=== PATIENT | male | born 1955 | race Caucasian/White ===

== ENCOUNTER 2024-02-21 13:03 | Observation (INO) | payer MEDICARE, BC, SELFPAY ==
[2024-02-21] VITALS (31 sets, daily range): BP systolic 119–148; BP diastolic 70–85; PULSE 56–88; RESP 16–18; TEMP 36–36.5; O2SAT 94–99; BMI 36.3; BMI 37.4
--- NOTE | 2024-02-21 13:23 | ED_ITS ---
HPI - General Adult General Chief complaint: Neuro Symptoms/Altered Deficit Stated complaint: Headaches, inappropriate words Time Seen by Provider: 02/21/24 13:07 History of Present Illness HPI narrative: Starting at 5: 30 pm last evening, patient having difficulty processing language and numbness to right side of his cheek. Difficulty finding words. 68-year-old man presenting to the emergency department with difficulty speaking and headache. Beginning at around 5:30 p.m. had an episode where he just seemed confused about what peas are. Apparently was a little argumentative with his spouse who accompanies him here today. Had been experiencing some frontal headache as well preceding all of this over the course the day. Did irritate his back somewhat a couple of days ago. notes how he is also under a lot of stress to get a fish garcia ready. I asked him how he is feeling it he just says ?I do not know?. Just does not seem right though. Was taking acetaminophen for headache yesterday. Has not had any cough or cold symptoms. No fever. No chest pain or shortness of breath. No history of arrhythmia. Looks like carries a diagnosis of diabetes. Leaving anabaptism this morning he wanted to turn on the wipers and kept talking about the bearings. Still seems puzzled by that. Has not had any focal weakness. Also apparently just revealed to spouse that the right side of his face was numb yesterday evening. Does not sound as though is typically prone to headache. No visual changes. Related Data Home Medications Medication Instructions Recorded Confirmed atorvastatin 40 mg tablet 40 mg PO QPM 02/21/24 02/21/24 glipizide 5 mg tablet, extended 5 mg PO DAILY 02/21/24 02/21/24 release 24 hr metformin 500 mg tablet,extended 1,000 mg PO BID 02/21/24 02/21/24 release 24 hr omeprazole 20 mg capsule,delayed 20 mg PO DAILY 02/21/24 02/21/24 release pioglitazone 30 mg tablet 30 mg PO DAILY 02/21/24 02/21/24 Allergies Allergy/AdvReac Type Severity Reaction Status Date / Time fentanyl Allergy Intermediate Hypotension Verified 02/21/24 14:29 midazolam [From Versed] Allergy Intermediate Hypotension Verified 02/21/24 14:32 hydrocodone [From Vicodin] Allergy Unknown Verified 02/21/24 14:26 lisinopril Allergy Unknown Verified 02/21/24 14:32 Penicillins Allergy Unknown Verified 02/21/24 14:29 Review of Systems Status of ROS: Reports: 6 or more systems reviewed and unremarkable except as noted in History and below Exam Narrative: Exam Narrative: Pleasant. NAD other than seeming generally concerned. Brow furrowed a little bit. Is articulating himself smoothly. Does struggle with some recall. Just can not for example remember who is current president of the [place] normal sensation at this point. Normal strength. Cranial nerves 2-12 look to be intact at this time. He is a little confused with [id number] but once is doing it it is accurate. Estimate on NIH stroke scale. Heart in regular rate and rhythm. Lungs are clear. Abdomen is overweight soft nontender. Extremities with maybe some trace pretibial edema are otherwise well perfused. Little sore in the low pericervical spinal musculature in the trapezial musculature medially. Const: Vital Signs, click to edit/add: Vital Signs - 24 hr 02/21/24 13:11 02/21/24 14:01 02/21/24 14:12 Temperature 96.8 F L Pulse Rate 60 Pulse Rate [Pulse Oximeter] 64 Respiratory Rate 18 Blood Pressure 148/81 H Blood Pressure [Ri ght Upper Arm] 134/73 Pulse Oximetry 98 97 96 Oxygen Delivery Me thod Room Air 02/21/24 14:13 02/21/24 14:15 02/21/24 14:22 Temperature Pulse Rate 59 L 61 61 Pulse Rate [Pulse Oximeter] Respiratory Rate Blood Pressure 139/76 Blood Pressure [Ri ght Upper Arm] Pulse Oximetry 99 99 96 Oxygen Delivery Me thod 02/21/24 14:22 02/21/24 14:30 02/21/24 14:42 Temperature Pulse Rate 61 59 L 57 L Pulse Rate [Pulse Oximeter] Respiratory Rate Blood Pressure 139/76 141/76 H Blood Pressure [Ri ght Upper Arm] Pulse Oximetry 96 94 94 Oxygen Delivery Me thod 02/21/24 14:51 02/21/24 14:52 02/21/24 15:00 Temperature Pulse Rate 56 L 62 56 L Pulse Rate [Pulse Oximeter] Respiratory Rate Blood Pressure 138/85 Blood Pressure [Ri ght Upper Arm] Pulse Oximetry 98 99 98 Oxygen Delivery Me thod 02/21/24 15:02 02/21/24 15:15 02/21/24 15:22 Temperature Pulse Rate 57 L 58 L 58 L Pulse Rate [Pulse Oximeter] Respiratory Rate Blood Pressure 142/76 H 132/72 Blood Pressure [Ri ght Upper Arm] Pulse Oximetry 98 95 96 Oxygen Delivery Me thod 02/21/24 15:30 02/21/24 15:42 02/21/24 15:45 Temperature Pulse Rate 58 L 60 61 Pulse Rate [Pulse Oximeter] Respiratory Rate Blood Pressure 139/79 Blood Pressure [Ri ght Upper Arm] Pulse Oximetry 94 98 99 Oxygen Delivery Me thod 02/21/24 16:00 02/21/24 16:15 Temperature Pulse Rate 60 58 L Pulse Rate [Pulse Oximeter] Respiratory Rate Blood Pressure Blood Pressure [Ri ght Upper Arm] Pulse Oximetry 97 95 Oxygen Delivery Me thod Documenting provider has reviewed patient's vital signs: yes Course Vital Signs Vital signs: Initial Vital Signs Temperature 96.8 F L 02/21/24 13:11 Temperature Source Temporal Artery Scan 02/21/24 13:11 Pulse Rate 64 02/21/24 13:11 Respiratory Rate 18 02/21/24 13:11 Blood Pressure 134/73 02/21/24 13:11 Blood Pressure Mean 93 02/21/24 13:11 Blood Pressure Position Sitting 02/21/24 13:11 Pulse Oximetry 98 02/21/24 13:11 Oxygen Delivery Method Room Air 02/21/24 13:11 Vital Signs Temperature 96.8 F L 02/21/24 13:11 Pulse Rate 64 02/21/24 13:11 Respiratory Rate 18 02/21/24 13:11 Blood Pressure 134/73 02/21/24 13:11 Pulse Oximetry 98 02/21/24 13:11 Oxygen Delivery Method Room Air 02/21/24 13:11 Temperature 96.8 F L 02/21/24 13:11 Pulse Rate 58 L 02/21/24 16:15 Respiratory Rate 18 02/21/24 13:11 Blood Pressure 139/79 02/21/24 15:42 Pulse Oximetry 95 02/21/24 16:15 Oxygen Delivery Method Room Air 02/21/24 13:11 Medications Administered Medications: Discontinued Medications Generic Name Dose Route Start Last Admin Trade Name Freq PRN Reason Stop Dose Admin Diphenhydramine HCl 12.5 mg 02/21/24 13:37 02/21/24 14:13 Diphenhydramine 50 Mg/Ml Inj IVP 02/21/24 13:38 12.5 mg ONCE ONE Administration Sodium Chloride 1,000 mls @ 1,000 mls/hr 02/21/24 13:36 02/21/24 15:29 0.9 % Sodium Chloride 1000 Ml IV 02/21/24 14:35 Infused .Q1H ONE Infusion Ketorolac Tromethamine 15 mg 02/21/24 15:11 02/21/24 15:35 Ketorolac 15 Mg/Ml Inj IVP 02/21/24 15:12 15 mg ONCE ONE Administration Morphine Sulfate 2 mg 02/21/24 13:37 02/21/24 14:13 Morphine 2 Mg/Ml Inj IVP 02/21/24 13:38 2 mg ONCE ONE Administration Medical Decision Making MDM Narrative Medical decision making narrative: Does appear to have some cognitive/expressive deficits. MRI is not available. Have activated non-Urgent stroke protocol here as I think this is 1st in our differential. Symptoms consistent with ischemic however headache might represent a bleed. May simply be a secondary tension headache. Does not appear to have infectious etiology nor hypertensive enough to cause encephalopathy. Risk for thromboembolic/ischemic stroke considering ChadVasc scoring with diagnosis of diabetes EKG reviewed by me is in a normal sinus rhythm without ischemic changes. Would like something for headache. IV fluids should help. Will give low-dose diphenhydramine and morphine as pending head CT. Discussed this case with Stroke Neuro. Proceeding with imaging per protocol. In Head CT reviewed by me looks to be absent any acute abnormality. Have requested ketorolac now too on reassessment as he would like more medication for pain if possible; admittedly pain is improved. Head CT reviewed by Radiology with read as below Study:?CT Head WITHOUT-02/21/2024 2:25:11 PM Ordering Physician:BARBARA Final Report: Indication : Expressive aphasia. Confusion. Technique : CT of the brain without intravenous contrast. Comparison: None relevant available at the time of interpretation. Findings: No acute blurring of the whiting-white differentiation. There is no intracranial hemorrhage. The ventricles are proportionate to the cerebral sulci. The 4th ventricle is midline. Basal cisterns appear patent. No abnormal extra-axial fluid collection identified. Mild parenchymal volume loss. There is moderate patchy periventricular hypodensity, favored to represent chronic ischemic microvascular disease. Small chronic lacunar infarct in the left ied radiata region. There is no intracranial mass, mass effect or midline shift identified. No depressed calvarial fracture. Impression: 1. No acute intracranial process. 2. Small chronic lacunar infarct left eid radiata. 3. Oxev-sx-fykgerwd chronic ischemic microvascular disease. Discussed again with Stroke Neuro. preliminary read available with no marked vascular disease and no evidence of stroke at this time other than is small chronic lacunar infarct noted as above. Recommendations are for admission, low-dose aspirin, permissive hypertension and follow up MRI Still with complaint of headache following reassessment after dosing with ketorolac as well. Is accepting admission partly on 's prompting. Will also give low-dose ketamine infusion to help with this headache. Discuss this case with hospitalist who is accepting Lab Data Lab results reviewed: Yes I reviewed the patient's lab results Labs: Lab Results 02/21/24 02/21/24 Range/Units 13:35 14:44 WBC 5.50 (4.50-11.00) K/uL RBC 4.45 (4.30-5.90) m/uL Hgb 13.7 (13.5-17.5) gm/dL Hct 42.0 (37.0-53.0) % MCV 94 (80-100) fL MCH 31 (26-34) pg MCHC 33 (32-36) gm/dL RDW Coeff of [place] 13.9 (11.5-15.5) % Plt Count 190 (140-440) K/uL Neut % (Auto) 40.9 L (42.0-72.0) % Lymph % (Auto) 44.7 H (20-44) % [place] % (Auto) 10.2 (0.0-11.0) % Eos % (Auto) 3.6 (0.0-7.0) % Baso % (Auto) 0.4 (0.0-3.0) % Neut # (Auto) 2.20 (1.7-7.0) K/uL Lymph # (Auto) 2.50 (0.90-2.90) K/uL [place] # (Auto) 0.60 (0.00-0.90) K/UL Eos # (Auto) 0.20 (0.00-0.50) K/uL Baso # (Auto) 0.02 (0.00-0.30) K/uL Abs Immat Gran (auto) 0.01 (0.00-0.30) K/uL Imm/Tot Granulo (auto) 0.2 % INR 0.91 (0.91-1.10) APTT 27 (23-33) Seconds Sodium 139 (135-149) mmol/L Potassium 4.1 (3.6-5.1) mmol/L Chloride 106 (96-114) mmol/L Carbon Dioxide 23 (20-32) mmol/L Anion Gap 10 (7-15) mEq/L BUN 18 (7-30) mg/dL Creatinine 1.1 (0.5-1.5) mg/dL Estimated Creat Clear 58.00 Estimated GFR 73 ml/min Glucose 98 (60-115) mg/dL Calcium 9.4 (8.4-10.6) mg/dL Troponin I < 0.01 L (0.01-0.04) ng/mL Urine Opiates Screen POSITIVE A (Negative) Ur Oxycodone Screen Negative (Negative) Urine Methadone Screen Negative (Negative) Ur Barbiturates Screen Negative (Negative) U Tricyclic Antidepress Negative (Negative) Ur Phencyclidine Scrn Negative (Negative) Ur Amphetamines Screen Negative (Negative) U Methamphetamines Scrn Negative (Negative) U Benzodiazepines Scrn Negative (Negative) Urine Cocaine Screen Negative (Negative) U Marijuana (THC) Screen Negative (Negative) Ur Drug Screen Comment See Note ECG Data Attestation: I personally reviewed and interpreted this ECG as follows: (Normal sinus rhythm rate of 65 without acute ischemic changes) Discharge Plan Discharge Clinical Impression: Expressive aphasia, Altered mental status Patient Disposition: Admitted As Observation Condition: Stable
--- NOTE | 2024-02-21 13:35 | CT_ITS ---
Patient: GEOFF MAYER Facility:?[facility] Patient ID:?[id number] Site Patient ID:?[id number]. Site :?1955 Study:?CT-Neck Angio W/ 95CC ISOVUE 370-02/21/2024 2:23:26 PM Ordering Physician:BARBARA Final Report: INDICATION: Acute stroke, expressive aphasia, confusion. TECHNIQUE: CTA neck with contrast bolus tracking, 3D angiographic rendering using maximum intensity projection (MIP) and images permanently archived. FINDINGS: There is minor carotid atherosclerosis. There is no significant carotid artery stenosis or dissection. There is no significant vertebral artery stenosis or dissection. The soft tissues of the neck are within normal limits. Degenerative changes are noted in the cervical spine. IMPRESSION: No significant carotid or vertebral artery stenosis or dissection. Please note that all CT scans at this facility use dose modulation, iterative reconstruction, and/or weight-based dosing when appropriate to reduce radiation dose to as low as reasonably achievable. Dictated by Chang Bello MD @ 02/21/2024 4:04:45 PM Signed by:?Chang Bello MD @02/21/2024 4:04:45 PM (Electronic Signature)
--- NOTE | 2024-02-21 13:35 | CT_ITS ---
Patient: GEOFF MAYER Facility:?[facility] Patient ID:?[id number] Site Patient ID:?[id number]. Site :?1955 Study:?CT-Head WITHOUT-02/21/2024 2:25:11 PM Ordering Physician:BARBARA Final Report: Indication : Expressive aphasia. Confusion. Technique : CT of the brain without intravenous contrast. Comparison: None relevant available at the time of interpretation. Findings: No acute blurring of the whiting-white differentiation. There is no intracranial hemorrhage. The ventricles are proportionate to the cerebral sulci. The 4th ventricle is midline. Basal cisterns appear patent. No abnormal extra-axial fluid collection identified. Mild parenchymal volume loss. There is moderate patchy periventricular hypodensity, favored to represent chronic ischemic microvascular disease. Small chronic lacunar infarct in the left eid radiata region. There is no intracranial mass, mass effect or midline shift identified. No depressed calvarial fracture. Impression: 1. No acute intracranial process. 2. Small chronic lacunar infarct left eid radiata. 3. Jmdt-ng-iypedgdv chronic ischemic microvascular disease. The above findings were communicated over the telephone with Dr. Hu By Dr. Montes at 1456 hours on 02/21/2024. Please note that all CT scans at this facility use dose modulation, iterative reconstruction, and/or weight-based dosing when appropriate to reduce radiation dose to as low as reasonably achievable. Dictated by Presley Montes MD @ 02/21/2024 3:07:23 PM Signed by:?Presley Montes MD @02/21/2024 3:07:23 PM (Electronic Signature)
--- NOTE | 2024-02-21 13:35 | CT_ITS ---
Patient: GEOFF MAYER Facility:?[facility] Patient ID:?[id number] Site Patient ID:?[id number]. Site :?1955 Study:?CT-Head Angio W/ 95CC ISOVUE 370 NONACCUTE-02/21/2024 2:24:33 PM Ordering Physician:BARBARA Final Report: INDICATION: Acute stroke, expressive aphasia, confusion. TECHNIQUE: CTA head with contrast bolus tracking, 3D angiographic rendering using maximum intensity projection (MIP) and images permanently archived. FINDINGS: There is scattered intracranial atherosclerotic disease. There is normal opacification of the intracranial vasculature. There is no large vessel occlusion. No aneurysm is identified. IMPRESSION: No large vessel occlusion. Please note that all CT scans at this facility use dose modulation, iterative reconstruction, and/or weight-based dosing when appropriate to reduce radiation dose to as low as reasonably achievable. Dictated by Chang Bello MD @ 02/21/2024 4:03:29 PM Signed by:?Chang Bello MD @02/21/2024 4:03:29 PM (Electronic Signature)
[2024-02-21 13:45] LABS: Basophils Absolute Auto 0.02 K/uL (0.00-0.30); Basophils Percent Auto 0.4 % (0.0-3.0); Eosinophils Percent Auto 3.6 % (0.0-7.0); Hemoglobin* 13.7 gm/dL (13.5-17.5); Immature Granulocytes Abs Auto 0.01 K/uL (0.00-0.30); Immature Granulocytes Pct Auto 0.2 %; Lymphocytes Percent Auto 44.7 % (20-44); Mean Corpuscular HGB Conc 33 gm/dL (32-36); Mean Corpuscular Hemoglobin 31 pg (26-34); Mean Corpuscular Volume 94 fL (80-100); Monocytes Percent Auto 10.2 % (0.0-11.0); Neutrophils Percent Auto 40.9 % (42.0-72.0); Platelet Count* 190 K/uL (140-440); RDW Coefficient of Variation % 13.9 % (11.5-15.5); Red Blood Count 4.45 m/uL (4.30-5.90)
[2024-02-21 13:46] LABS: Slide Review Reflex No
[2024-02-21 13:51] LABS: Chloride* 106 mmol/L (96-114); Potassium* 4.1 mmol/L (3.6-5.1); Sodium* 139 mmol/L (135-149)
[2024-02-21 13:53] LABS: INR 0.91 (0.91-1.10); Prothrombin Time 12.8 Seconds
[2024-02-21 13:54] LABS: Anion Gap 10 mEq/L (7-15); Blood Urea Nitrogen* 18 mg/dL (7-30); Calcium* 9.4 mg/dL (8.4-10.6); Carbon Dioxide* 23 mmol/L (20-32); Creatinine* 1.1 mg/dL (0.5-1.5); Estimated Glomerular Filt Rate 73 ml/min; Glucose* 98 mg/dL (60-115); Partial Thromboplastin Time* 27 Seconds (23-33)
[2024-02-21] MEDS: 0.9 % SODIUM CHLORIDE 1000 ml 1,000 ML IV (14:13)
[2024-02-21] MEDS: MORPHINE 2 MG/ML inj IVP (14:13)
[2024-02-21] MEDS: diphenhydrAMINE 50 MG/ML inj 12.5 MG IVP (14:13)
[2024-02-21 14:15] LABS: Troponin I* < 0.01 ng/mL (0.01-0.04)
[2024-02-21 15:01] LABS: Amphetamine Screen Urine Negative (Negative); Barbiturate Screen Urine Negative (Negative); Benzodiazepines Screen Urine Negative (Negative); Cannabinoid Screen Urine Negative (Negative); Cocaine Screen Urine Negative (Negative); Methadone Screen Urine Negative (Negative); Methamphetamines Screen Urine Negative (Negative); Opiate Screen Urine POSITIVE (Negative); Oxycodone Screen Urine Negative (Negative); Phencyclidine Screen Urine Negative (Negative); Tricyclic Antidepressant Urine Negative (Negative)
[2024-02-21] MEDS: KETOROLAC 15 MG/ML inj IVP (15:35)
--- NOTE | 2024-02-21 16:30 | P.IMHP_ITS ---
Hospitalist- H&P: HPI History of Present Illness Date Seen: 02/21/24 Chief complaint: Headaches, inappropriate words Narrative: Jesús Singh is a 68 year old male with past medical history of type II DM presenting for confusion and headache. His helps provide hx. The patient was in normal state of health until yesterday when he developed waxing and waning headache. Throughout the day he was having episodes of transient confusion. He also had episodes of expressive aphasia and right facial numbness. No visual symptoms, no unilateral extremity weakness. His headache continued today. He also continued to have expressive aphasia and presented to ED for evaluation. In the ED CT head/CTA showed no acute cva. His case was discussed with Neurology he was started on aspirin and admitted for evaluation. CT head/CTA 1. No acute intracranial process. 2. Small chronic lacunar infarct left eid radiata. 3. Fibd-uu-bydeqsua chronic ischemic microvascular disease. Review of Systems Status of ROS: Reports: unobtainable due to medical condition [facility] Social History What is your current living situation?: I presently have a place to live Problems where you live: no known problems Problems where you live details: none In the past 12 months, utilities in danger of being shut off: no In past 12 months, lack of transportation kept you from medical appts, meetings, work, or getting things needed for daily living: no In the past 12 mos, have been you worried that your food would run out before you had money to buy more?: never true In the past 12 mos, the food you bought just didn't last and you didn't have money to buy more?: never true Highest level of school completed/degree received: high school graduate Smoking Status: Never smoker How often do you have a drink containing alcohol: monthly or less Alcohol type: beer How often do you have six or more drinks on one occasion: Monthly AUDIT-C Alcohol total score: 3 Non-prescribed substance use: denies use Caffeine: Yes (coffee 2 cups) How often does anyone, including family, friends and others, physically hurt you : never How often does anyone, including family, friends and others, insult or talk down to you: never How often does anyone, including family, friends and others, threaten you with harm: never How often does anyone, including family, friends and others, scream or curse at you: never service: No Meds Home Medications and Allergies Home Medications Medication Instructions Recorded Confirmed Type atorvastatin 40 mg tablet 40 mg PO QPM 02/21/24 02/21/24 History glipizide 5 mg tablet, extended 5 mg PO DAILY 02/21/24 02/21/24 History release 24 hr metformin 500 mg tablet,extended 1,000 mg PO BID 02/21/24 02/21/24 History release 24 hr omeprazole 20 mg capsule,delayed 20 mg PO DAILY 02/21/24 02/21/24 History release pioglitazone 30 mg tablet 30 mg PO DAILY 02/21/24 02/21/24 History Allergies Allergy/AdvReac Type Severity Reaction Status Date / Time fentanyl Allergy Intermediate Hypotension Verified 02/21/24 14:29 midazolam [From Versed] Allergy Intermediate Hypotension Verified 02/21/24 14:32 hydrocodone [From Vicodin] Allergy Unknown Verified 02/21/24 14:26 lisinopril Allergy Unknown Verified 02/21/24 14:32 Penicillins Allergy Unknown Verified 02/21/24 14:29 Exam Const: Vital Signs, click to edit/add: Vital Signs - 24 hr 02/21/24 13:11 02/21/24 14:01 02/21/24 14:12 Temperature 96.8 F L Pulse Rate 60 Pulse Rate [Pulse Oximeter] 64 Respiratory Rate 18 Blood Pressure 148/81 H Blood Pressure [Ri ght Upper Arm] 134/73 Pulse Oximetry 98 97 96 Oxygen Delivery Me thod Room Air 02/21/24 14:13 02/21/24 14:15 02/21/24 14:22 Temperature Pulse Rate 59 L 61 61 Pulse Rate [Pulse Oximeter] Respiratory Rate Blood Pressure 139/76 Blood Pressure [Ri ght Upper Arm] Pulse Oximetry 99 99 96 Oxygen Delivery Me thod 02/21/24 14:22 02/21/24 14:30 02/21/24 14:42 Temperature Pulse Rate 61 59 L 57 L Pulse Rate [Pulse Oximeter] Respiratory Rate Blood Pressure 139/76 141/76 H Blood Pressure [Ri ght Upper Arm] Pulse Oximetry 96 94 94 Oxygen Delivery Me thod 02/21/24 14:51 02/21/24 14:52 02/21/24 15:00 Temperature Pulse Rate 56 L 62 56 L Pulse Rate [Pulse Oximeter] Respiratory Rate Blood Pressure 138/85 Blood Pressure [Ri ght Upper Arm] Pulse Oximetry 98 99 98 Oxygen Delivery Me thod 02/21/24 15:02 02/21/24 15:15 02/21/24 15:22 Temperature Pulse Rate 57 L 58 L 58 L Pulse Rate [Pulse Oximeter] Respiratory Rate Blood Pressure 142/76 H 132/72 Blood Pressure [Ri ght Upper Arm] Pulse Oximetry 98 95 96 Oxygen Delivery Me thod 02/21/24 15:30 02/21/24 15:42 02/21/24 15:45 Temperature Pulse Rate 58 L 60 61 Pulse Rate [Pulse Oximeter] Respiratory Rate Blood Pressure 139/79 Blood Pressure [Ri ght Upper Arm] Pulse Oximetry 94 98 99 Oxygen Delivery Me thod 02/21/24 16:00 02/21/24 16:15 Temperature Pulse Rate 60 58 L Pulse Rate [Pulse Oximeter] Respiratory Rate Blood Pressure Blood Pressure [Ri ght Upper Arm] Pulse Oximetry 97 95 Oxygen Delivery Me thod Common normals: no apparent distress General appearance: cooperative and comfortable HENMT: Common normals: normocephalic Head and scalp: normocephalic Face and sinus: face symmetric Mouth: moist mucous membranes abnormal Eye: Common normals: EOMs intact bilaterally Neck & C-Spine: Common normals: supple Resp: Common normals: clear to auscultation bilaterally Auscultation: clear to auscultation bilaterally Cardio: Common normals: regular rate, regular rhythm and S1 normal heart sound Rate: regular rate Rhythm: regular rhythm Heart sounds: S1 normal GI: Common normals: soft to palpation and non-tender Palpation: soft Extremity: Common normals: no calf tenderness Neuro: Speech: speech normal Other: CN grossly intact, UE/LE strength equal and symmetric, sensation to light touch intact, no facial droop, speech intact Oriented to person/place but not time Psych: Attitude: other (irritable ) Skin: Narrative: no rash on face or arms Hospitalist - H&P: Result Labs Labs: Short CBC 02/21/24 Range/Units 13:35 WBC 5.50 (4.50-11.00) K/uL Hgb 13.7 (13.5-17.5) gm/dL Hct 42.0 (37.0-53.0) % Plt Count 190 (140-440) K/uL BMP 02/21/24 13:35 Sodium 139 Potassium 4.1 Chloride 106 Carbon Dioxide 23 BUN 18 Creatinine 1.1 Glucose 98 Calcium 9.4 Cardiac Enzymes 02/21/24 Range/Units 13:35 Troponin I < 0.01 L (0.01-0.04) ng/mL Assessment and Plan Assessment and plan (1) Altered mental status: Problem comment: presenting with confusion, headache, ?transient expressive aphasia and right facial numbness, ?TIA, CVA, Status: Acute Assessment and Plan: admit to observation; tele, neuro checks; MRI brain in AM, continue aspirin, continue statin, check lipid panel/a1c; echo, PT evaluation; may consider teleneuro consult in AM after workup and if symptoms persist, permissive htn for tonight (2) Diabetes: Problem comment: Hx of Type II DM Status: Acute Assessment and Plan: Shortly after arrival to floor had hypoglycemic episode which may have contributed to his neurological symptoms? Hold all oral agents check a1c low ssi as needed (3) Hyperlipidemia: Problem comment: continue statin Status: Acute
[2024-02-21] MEDS: ASPIRIN EC 325 MG TABLET PO (16:36)
[2024-02-21] MEDS: KETAMINE 50 MG/0.5 ML 20 MG in 0.9 % SODIUM CHLORIDE 100 ml 100 ML 200.4 MG IVPB (16:48)
[2024-02-21 17:20] LABS: Basophils Absolute Auto 0.04 K/uL (0.00-0.30); Basophils Percent Auto 0.7 % (0.0-3.0); Eosinophils Absolute Auto 0.13 K/uL (0.00-0.50); Eosinophils Percent Auto 2.3 % (0.0-7.0); Hematocrit 38.5 % (37.0-53.0); Hemoglobin* 12.5 gm/dL (13.5-17.5); Immature Granulocytes Abs Auto 0.05 K/uL (0.00-0.30); Immature Granulocytes Pct Auto 0.9 %; Lymphocytes Absolute Auto 1.93 K/uL (0.90-2.90); Lymphocytes Percent Auto 34.6 % (20-44); Mean Corpuscular HGB Conc 33 gm/dL (32-36); Mean Corpuscular Hemoglobin 31 pg (26-34); Mean Corpuscular Volume 95 fL (80-100); Monocytes Percent Auto 8.4 % (0.0-11.0); Neutrophils Absolute Auto 2.95 K/uL (1.7-7.0); Neutrophils Percent Auto 53.1 % (42.0-72.0); Platelet Count* 172 K/uL (140-440); RDW Coefficient of Variation % 13.8 % (11.5-15.5); Red Blood Count 4.07 m/uL (4.30-5.90); White Blood Count* 5.57 K/uL (4.50-11.00)
[2024-02-21 17:36] LABS: Slide Review Reflex No
--- NOTE | 2024-02-21 19:30 | PC.NURSE ---
shift note: pt to rm 256 via WC. pt a&o x3. pt having difficulty with word finding. COHEN on admit 02/06. BS 70 and grape juice given. Recheck of BS 123. Pt ate 100% dinner. Rt AC SL patent.
[2024-02-21] MEDS: ACETAMINOPHEN 325 MG TABLET 650 MG PO (19:52)
[2024-02-21] MEDS: ATORVASTATIN CALCIUM 40 MG TABLET PO (19:56)
[2024-02-21] MEDS: SODIUM CHLORIDE 0.9 % (FLUSH) 10 ML SYRINGE 5 ML IVF (21:05)
[2024-02-22 03:00] VITALS: BP 122/74; PULSE 61; RESP 16; TEMP 36.4; O2SAT 95
--- NOTE | 2024-02-22 06:44 | PC.NURSE ---
End of shift report [id number]: Patient alert and oriented x 4. Frontal headache reported upon beginning of shift, pain relieved with PRN tylenol. Stroke protocol followed, neuros intact. Patient ambulates independently, gait steady. Denies any dizziness, lightheadedness or numbness to face or extremities. Strength to UE and LE equal and strong. Denies any shortness of breath or chest pain.
[2024-02-22 07:00] VITALS: BP 118/75; PULSE 64; RESP 20; TEMP 36.4; O2SAT 93
--- NOTE | 2024-02-22 07:00 | MR_ITS ---
Patient: GEOFF MAYER Facility:?[facility] Patient ID:?[id number] Site Patient ID:?[id number]. Site :?[id number] Study:?MRI-Head W/O-02/22/2024 11:36:09 AM Ordering Physician:CLAIRE Final Report: Indication: Expressive aphasia. Confusion. Technique: Multiplanar, multisequence MRI of the brain was performed without intravenous contrast. Comparison: CT head 02/21/2024. Findings: Slight thinning of the corpus callosum. The pituitary gland clivus appear intact. Mild degenerative change visualized upper cervical spine. There is no restricted diffusion. Few small foci of chronic microhemorrhage right posterior parietal lobe and right cerebellum. The ventricles are proportionate to the cerebral sulci. The 4th ventricle appears midline. The basal cisterns appear patent. No abnormal extra-axial fluid collection identified. Mild parenchymal volume loss. Moderate scattered T2 FLAIR hyperintense foci within the subcortical and periventricular white matter, favored to represent chronic ischemic microvascular disease. Small chronic lacunar infarct left eid radiata and basal ganglia. Small chronic infarcts bilateral cerebellum. There is no intracranial mass, abnormal mass-effect or midline shift identified. Major intracranial vascular flow voids appear grossly intact. Both globes are preserved. Small right mastoid effusion. Impression: 1. No acute/subacute infarct. 2. Moderate chronic ischemic microvascular disease. 3. 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 Dictated by Presley Montes MD @ 02/22/2024 11:47:19 AM Signed by:?Presley Montes MD @02/22/2024 11:47:19 AM (Electronic Signature)
[2024-02-22 07:28] LABS: Hemoglobin A1C* 6.7 % (0-5.6)
[2024-02-22 07:34] LABS: Cholesterol* 134 mg/dL (90-199)
[2024-02-22 07:35] LABS: HDL Cholesterol* 43 mg/dL (>=40); LDL Cholesterol Calculated 46 mg/dL (<100); Triglycerides* 225 mg/dL (40-149)
[2024-02-22] MEDS: OMEPRAZOLE 20 MG CAPSULE DR PO (07:55)
[2024-02-22] MEDS: ASPIRIN 81 MG TAB.CHEW PO (07:55)
[2024-02-22 08:47] VITALS: PULSE 69
[2024-02-22 11:00] VITALS: BP 122/65; PULSE 67; RESP 16; TEMP 36.3; O2SAT 94
[2024-02-22] MEDS: SODIUM CHLORIDE 0.9 % (FLUSH) 10 ML SYRINGE 5 ML IVF (11:12)
--- NOTE | 2024-02-22 12:26 | P.DS_ITS ---
DS: Providers Provider Date Seen: 02/22/24 Date of admission: 02/21/24 16:50 Primary care physician: Damian More MD Admitting Clinician: Ozzie Arce MD Consults: 02/21/24 17:04 Consult to Physical Therapy [CONS] Routine Comment: Reason(s) for PT Consult:: Balance Assessment Any Restrictions?:: No Restrictions 02/22/24 08:21 Consult to Occupational Therapy [CONS] Routine Comment: Reason(s) for OT Consult:: Evaluate and Treat Any Restrictions?:: No Restrictions Attending Phys[facility] on [facility]: 02/22/24 DS: Diagnosis Discharge Diagnosis (1) Altered mental status: Status: Acute Problem details: Presenting symptoms including confusion, headache, aphasia have all resolved MRI was reviewed and there were no acute findings The team appreciates Hawkins neurology consulting via telemedicine today Going forward full cognitive assessment is recommended, closer monitoring of his blood sugar is also recommended. Patient is being discharged on a baby aspirin (2) Expressive aphasia: Status: Acute Problem details: Resolved (3) Diabetes: Status: Acute Problem details: A1c 6.7. I have asked Harrison to hold his pioglitazone until he consults with his PCP. He did have some hypo glycemia while he was here which could have contributed or caused his symptoms. (4) Hyperlipidemia: Status: Acute Problem details: continue statin DS: Summary Hospital Course Hospital Course: FINAL DIAGNOSIS/FOLLOW UP ISSUES: 1. Atypical TIA, cognitive decline versus hypoglycemic episode: MRI shows chronic infarct pattern, should follow-up with Neurology and your PCP for secondary prevention. We are recommending an aspirin daily, high-dose statin, lifestyle modification. For his diabetes I would allow is A1c to be greater than 7 but less than 8. We are recommending holding his pioglitazone at this time. I am also recommending a continuous glucose monitor, freestyle Sara is being sent to his pharmacy upon discharge. BRIEF HOSPITAL COURSE: Patient was admitted overnight. Synopsis of acute inpatient issues are outlined above. Chronic medical conditions with notable findings outlined above. His acute neurologic findings to include confusion, word-finding/aphasia and headache over resolved overnight. -mild hypertriglyceridemia, A1c 6.7. LDL 46. Brain MRI Time spent on discharge 37 minutes. Impression: 1. No acute/subacute infarct. 2. Moderate chronic ischemic microvascular disease. 3. 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 Echo Final Impressions: 1. Normal left ventricular size, mildly increased wall thickness, normal global systolic function, calculated EF of 69 %. 2. Right ventricular cavity size is mildly enlarged, global systolic RV function is normal. 3. Normal left atrium size. 4. The aortic valve is normal, no stenosis and trivial regurgitation. 5. The mitral valve is sclerotic, trace mitral regurgitation. 6. Tricuspid valve is normal. 7. The ascending aorta is dilated with a maximal diameter of 3.9 cm. 8. No pericardial effusion. DISCHARGE MEDICATIONS: See Reconciled list - SIGNIFICANT CHANGES: Aspirin daily, 81 mg Hold pioglitazone Specific instructions to the patient and follow-up are outlined below. REVIEW OF SYSTEMS No new chest pain or dyspnea Pain controlled No voiding difficulties Tolerating diet challenge PHYSICAL EXAM: CONSTITUTIONAL: Alert, insightful. bedside. No acute distress. VITAL SIGNS: see record. HEENT: Normocephalic, atraumatic. PERRL, EOMI, conjunctivae pink, no scleral icterus. Ears and nose externally normal. Pharynx normal. NECK: No JVD. No carotid bruit, no thyromegaly, no adenopathy. CHEST: Clear to auscultation bilaterally. HEART: S1 and S2 normal. Edema ABDOMEN: Soft, nontender. Normal bowel sounds. MUSCULOSKELETAL: No gross joint deformity or swelling. NEURO: Cranial nerves intact. Grossly intact. No asymmetric findings. SKIN: No rashes, petechiae, concerning changes PSYCHIATRIC: Mood euthymic. DISPOSITION: Home with Status at Discharge Functional status at discharge: independent ambulation Overall status at discharge: patient is back to baseline Time Spent with Patient Time attestation: Total time spent providing and/or coordinating discharge services: Exam Const: Vital Signs, click to edit/add: Vital Signs - 24 hr 02/21/24 13:11 02/21/24 14:01 02/21/24 14:12 Temperature 96.8 F L Pulse Rate 60 Pulse Rate [Left B rachial] Pulse Rate [Left P ulse Oximeter] Pulse Rate [Pulse Oximeter] 64 Respiratory Rate 18 Blood Pressure 148/81 H Blood Pressure [Le ft Arm] Blood Pressure [Ri ght Upper Arm] 134/73 Pulse Oximetry 98 97 96 Oxygen Delivery Me thod Room Air 02/21/24 14:13 02/21/24 14:15 02/21/24 14:22 Temperature Pulse Rate 59 L 61 61 Pulse Rate [Left B rachial] Pulse Rate [Left P ulse Oximeter] Pulse Rate [Pulse Oximeter] Respiratory Rate Blood Pressure 139/76 Blood Pressure [Le ft Arm] Blood Pressure [Ri ght Upper Arm] Pulse Oximetry 99 99 96 Oxygen Delivery Ma thod 02/21/24 14:22 02/21/24 14:30 02/21/24 14:42 Temperature Pulse Rate 61 59 L 57 L Pulse Rate [Left B rachial] Pulse Rate [Left P ulse Oximeter] Pulse Rate [Pulse Oximeter] Respiratory Rate Blood Pressure 139/76 141/76 H Blood Pressure [Le ft Arm] Blood Pressure [Ri ght Upper Arm] Pulse Oximetry 96 94 94 Oxygen Delivery Ma thod 02/21/24 14:51 02/21/24 14:52 02/21/24 15:00 Temperature Pulse Rate 56 L 62 56 L Pulse Rate [Left B rachial] Pulse Rate [Left P ulse Oximeter] Pulse Rate [Pulse Oximeter] Respiratory Rate Blood Pressure 138/85 Blood Pressure [Le ft Arm] Blood Pressure [Ri ght Upper Arm] Pulse Oximetry 98 99 98 Oxygen Delivery Ma thod 02/21/24 15:02 02/21/24 15:15 02/21/24 15:22 Temperature Pulse Rate 57 L 58 L 58 L Pulse Rate [Left B rachial] Pulse Rate [Left P ulse Oximeter] Pulse Rate [Pulse Oximeter] Respiratory Rate Blood Pressure 142/76 H 132/72 Blood Pressure [Le ft Arm] Blood Pressure [Ri ght Upper Arm] Pulse Oximetry 98 95 96 Oxygen Delivery Ma thod 02/21/24 15:30 02/21/24 15:42 02/21/24 15:45 Temperature Pulse Rate 58 L 60 61 Pulse Rate [Left B rachial] Pulse Rate [Left P ulse Oximeter] Pulse Rate [Pulse Oximeter] Respiratory Rate Blood Pressure 139/79 Blood Pressure [Le ft Arm] Blood Pressure [Ri ght Upper Arm] Pulse Oximetry 94 98 99 Oxygen Delivery Ma thod 02/21/24 16:00 02/21/24 16:15 02/21/24 16:22 Temperature Pulse Rate 60 58 L 68 Pulse Rate [Left B rachial] Pulse Rate [Left P ulse Oximeter] Pulse Rate [Pulse Oximeter] Respiratory Rate Blood Pressure 133/73 Blood Pressure [Le ft Arm] Blood Pressure [Ri ght Upper Arm] Pulse Oximetry 97 95 98 Oxygen Delivery Me thod 02/21/24 16:30 02/21/24 16:42 02/21/24 16:45 Temperature Pulse Rate 64 67 64 Pulse Rate [Left B rachial] Pulse Rate [Left P ulse Oximeter] Pulse Rate [Pulse Oximeter] Respiratory Rate Blood Pressure 127/70 Blood Pressure [Le ft Arm] Blood Pressure [Ri ght Upper Arm] Pulse Oximetry 99 97 97 Oxygen Delivery Me thod 02/21/24 17:00 02/21/24 17:04 02/21/24 17:08 Temperature 97.7 F Pulse Rate 72 71 71 Pulse Rate [Left B rachial] 72 Pulse Rate [Left P ulse Oximeter] Pulse Rate [Pulse Oximeter] Respiratory Rate 18 Blood Pressure 140/77 H Blood Pressure [Le ft Arm] 140/77 H Blood Pressure [Ri ght Upper Arm] Pulse Oximetry 97 Oxygen Delivery Ma thod Room Air 02/21/24 17:08 02/21/24 17:16 02/21/24 17:27 Temperature 97.7 F Pulse Rate Pulse Rate [Left B rachial] 72 Pulse Rate [Left P ulse Oximeter] Pulse Rate [Pulse Oximeter] Respiratory Rate 18 Blood Pressure Blood Pressure [Le ft Arm] 140/77 H Blood Pressure [Ri ght Upper Arm] Pulse Oximetry 97 97 97 [facility] 02/21/24 18:46 02/21/24 19:00 02/21/24 23:00 Temperature 97.5 F L 97.5 F L Pulse Rate 88 63 Pulse Rate [Left B rachial] 72 Pulse Rate [Left P ulse Oximeter] 88 88 Pulse Rate [Pulse Oximeter] Respiratory Rate 16 16 Blood Pressure 121/72 Blood Pressure [Le ft Arm] 121/72 121/72 Blood Pressure [Ri ght Upper Arm] Pulse Oximetry 95 95 [facility] Room Air 02/21/24 23:00 02/21/24 23:00 02/21/24 23:00 Temperature 97.5 F L 97.5 F L Pulse Rate 61 Pulse Rate [Left B rachial] Pulse Rate [Left P ulse Oximeter] 88 61 61 Pulse Rate [Pulse Oximeter] Respiratory Rate 16 18 18 Blood Pressure 119/70 Blood Pressure [Le ft Arm] 119/70 119/70 Blood Pressure [Ri ght Upper Arm] Pulse Oximetry 98 98 Oxygen Delivery Me thod Room Air Room Air 02/22/24 03:00 02/22/24 03:00 02/22/24 07:00 Temperature 97.6 F 97.6 F 97.5 F L Pulse Rate 61 Pulse Rate [Left B rachial] Pulse Rate [Left P ulse Oximeter] 61 61 64 Pulse Rate [Pulse Oximeter] Respiratory Rate 16 16 20 Blood Pressure 122/74 Blood Pressure [Le ft Arm] 122/74 122/74 118/75 Blood Pressure [Ri ght Upper Arm] Pulse Oximetry 95 95 93 Oxygen Delivery Ma thod Room Air Room Air Room Air 02/22/24 07:00 02/22/24 08:47 02/22/24 11:00 Temperature 97.5 F L 97.4 F L Pulse Rate 69 Pulse Rate [Left B rachial] Pulse Rate [Left P ulse Oximeter] 64 67 Pulse Rate [Pulse Oximeter] Respiratory Rate 20 16 Blood Pressure Blood Pressure [Le ft Arm] 118/75 122/65 Blood Pressure [Ri ght Upper Arm] Pulse Oximetry 93 94 Oxygen Delivery Me thod Room Air DS: Data Data Completed and Pending Labs on day of discharge: Labs from last 24 hours 02/22/24 02/21/24 02/21/24 07:11 17:15 14:44 WBC 5.57 RBC 4.07 L Hgb 12.5 L Hct 38.5 MCV 95 MCH 31 MCHC 33 RDW Coeff of [place] 13.8 Plt Count 172 Neut % (Auto) 53.1 Lymph % (Auto) 34.6 [place] % (Auto) 8.4 Eos % (Auto) 2.3 Baso % (Auto) 0.7 Neut # (Auto) 2.95 Lymph # (Auto) 1.93 [place] # (Auto) 0.50 Eos # (Auto) 0.13 Baso # (Auto) 0.04 Abs Immat Gran (auto) 0.05 Imm/Tot Granulo (auto) 0.9 INR APTT Sodium Potassium Chloride Carbon Dioxide Anion Gap BUN Creatinine Estimated Creat Clear Estimated GFR Glucose Hemoglobin A1c 6.7 H Calcium Troponin I Triglycerides 225 H Cholesterol 134 LDL Cholesterol, Calc 46 HDL Cholesterol 43 Urine Opiates Screen POSITIVE A Ur Oxycodone Screen Negative Urine Methadone Screen Negative Ur Barbiturates Screen Negative U Tricyclic Antidepress Negative Ur Phencyclidine Scrn Negative Ur Amphetamines Screen Negative U Methamphetamines Scrn Negative U Benzodiazepines Scrn Negative Urine Cocaine Screen Negative U Marijuana (THC) Screen Negative Ur Drug Screen Comment See Note 02/21/24 13:35 WBC 5.50 RBC 4.45 Hgb 13.7 Hct 42.0 MCV 94 MCH 31 MCHC 33 RDW Coeff of [place] 13.9 Plt Count 190 Neut % (Auto) 40.9 L Lymph % (Auto) 44.7 H [place] % (Auto) 10.2 Eos % (Auto) 3.6 Baso % (Auto) 0.4 Neut # (Auto) 2.20 Lymph # (Auto) 2.50 [place] # (Auto) 0.60 Eos # (Auto) 0.20 Baso # (Auto) 0.02 Abs Immat Gran (auto) 0.01 Imm/Tot Granulo (auto) 0.2 INR 0.91 APTT 27 Sodium 139 Potassium 4.1 Chloride 106 Carbon Dioxide 23 Anion Gap 10 BUN 18 Creatinine 1.1 Estimated Creat Clear 58.00 Estimated GFR 73 Glucose 98 Hemoglobin A1c Calcium 9.4 Troponin I < 0.01 L Triglycerides Cholesterol LDL Cholesterol, Calc HDL Cholesterol Urine Opiates Screen Ur Oxycodone Screen Urine Methadone Screen Ur Barbiturates Screen U Tricyclic Antidepress Ur Phencyclidine Scrn Ur Amphetamines Screen U Methamphetamines Scrn U Benzodiazepines Scrn Urine Cocaine Screen U Marijuana (THC) Screen Ur Drug Screen Comment Discharge Plan Discharge Disposition: Home, Self-Care Date of Admission: 02/21/24 16:50 Primary Care Provider: Damian More Condition: Stable Anticipated Discharge Date/Time: 02/22/24 15:07 Discharge Medications: New (DME) FreeStyle Sara 2 Devers Misc See Rx Instructions .Route Qty: 1 0RF Rx Instructions: As directed (DME) FreeStyle Sara 2 Sensor Kit See Rx Instructions .Route Qty: 1 0RF Rx Instructions: As directed Continued glipizide 5 mg tablet extended release 24hr 5 mg PO DAILY omeprazole 20 mg capsule,delayed release(DR/EC) 20 mg PO DAILY metformin 500 mg tablet extended release 24 hr 1,000 mg PO BID gemfibrozil 600 mg tablet 600 mg PO DAILY atorvastatin 40 mg tablet 40 mg PO QPM Qty: 30 0RF Discontinued pioglitazone 30 mg tablet 30 mg PO DAILY Discharge Orders: Discharge Order (Routine); Ordered 02/22/24 Ordered By: Faye Box Patient Education: Transient Ischemic Attack (DC) Activity Level: No Restrictions Discharge Diet: Regular Follow Up Appointments: Damian More MD [Primary Care Provider] - (Keep already scheduled appointment) Forms: [employer] Info Instructions
--- NOTE | 2024-02-22 17:26 | PC.NURSE ---
Dish[place]ge - Pt alert, oriented, cooperative. Ambulating independently in room, tolerating RA, regular diet, fluids. Pt continent of bowel and bladder. Family at bedside. IV removed with catheter intact. Discharge education given to pt and spouse with verbalized understanding. Pt discharged to home with spouse via wheelchair at approximately 1555.
== END 2024-02-22 15:55 | disposition home or self-care (01) ==
LOC: ED 16:18 → MEDSURG 16:50
PROVIDERS: Admitting Provider Hospitalist; Emergency Provider Family Medicine; PCP Family Medicine; Visit Provider Hospitalist
DX: R41.82 Altered mental status, unspecified (principal); R47.01 Aphasia; R51.9 Headache, unspecified; E11.649 Type 2 diabetes mellitus with hypoglycemia without coma; E78.5 Hyperlipidemia, unspecified; I51.7 Cardiomegaly; K21.9 Gastro-esophageal reflux disease without esophagitis; Z79.84 Long term (current) use of oral hypoglycemic drugs; R47.9 Unspecified speech disturbances
CPT/HCPCS: 36415; 70450; 70496; 70498; 70551; 80048; 80061; 80306; 82962; 83036; 84484; 85025; 85610; 85730; 93005; 93306; 94761; 96361; 96374; 96375; 97161; 97165; 99284; 99285; G0378; A9270; J1200; J1885; J2270; J3490; J7030; Q9967